=== PATIENT | female | born 2000 | race African-American/Black ===

== ENCOUNTER 2022-07-28 14:32 | Inpatient (IN) | payer MEDICAID, SELFPAY ==
[2022-07-28 14:33] VITALS: BP 129/75; PULSE 120; RESP 16; TEMP 36.4; O2SAT 98; BMI 38.5
[2022-07-28 15:26] LABS: Basophil# 0.02 X10^3/uL; Basophil% 0.2 % (0-1); Eosinophil# 0.22 X10^3/uL; Eosinophils% 1.8 % (0-5); Hematocrit 40.9 % (37-47); Hemoglobin 12.6 g/dL (12.0-15.0); Lymphocyte % 25.1 % (19-41); Mean Corp Hgb Conc 30.8 g/dL (32-36); Mean Corpuscular Hgb 27.8 pg (27.0-32.0); Mean Corpuscular Volume 90.3 fL (81-99); Mean Platelet Vol. 9.8 fl (6.2-12.0); Monocyte# 0.93 X10^3/uL; Monocyte% 7.5 % (0-10); NRBC Flagged by Analyzer 0 % (0-5); Neutrophil # 8.01 X10^3/uL (2.7-7.7); Platelet Count 258 K/mm3 (150-450); RBC Distribution Width CV 14.3 % (11.6-14.6); RBC Distribution Width SD 47.4 fl (35.1-43.9); Red Blood Count 4.53 M/mm3 (4.2-5.4); White Blood Count 12.3 K/mm3 (4.4-11.0)
--- NOTE | 2022-07-28 15:39 | CM.ED ---
Addendum entered by Karo Samuels 07/28/22 16:14: ANA informed treatment navigator the patient is being admitted for detox and going to [facility]. 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 Patient was laying in the hospital bed in hospital gown and agreeable to speak to social sciences chair. SW inquired about patient's use and interest in detox. Patient reports she has been using heroin daily for 6 1/2 months, but wants to detox. SW reviewed RAMP rules including patient's personal items being locked up and meeting with addictions counselor Enio for after care/ discharge planning. Patient inquired about the room setup and if the patient would have a roommate like rehab. SW explained it is a hospital room set up with a single bed. Patient reports no other questions or needs. SW remains available if needs arise. FRAN Miller
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
[2022-07-28 15:42] LABS: Internal QC Validated? YES +Cl - CLEAR BKGD; Pregnancy, Serum, hCG Quali. NEGATIVE Negative
[2022-07-28 15:44] LABS: Anion Gap 5 (5-15); BUN 11 mg/dL (7-18); BUN/Creat Ratio 14.2 RATIO (10-20); Calcium,Total 9.1 mg/dL (8.5-10.1); Chloride 107 mmol/L (98-107); Creatinine, Serum 0.77 mg/dL (0.55-1.02); EST Glomerular Filtration Rate 100 mL/min (>60); Est Glom Filt Rate - Afr Amer 121 mL/min (>60); Estimated Creatinine Clearance 83.01 ml/min; Glucose 91 mg/dL (74-106); Potassium 4.3 mmol/L (3.5-5.1); Sodium Level 139 mmol/L (136-145)
--- NOTE | 2022-07-28 15:57 | HP.PCM.HOS_ITS ---
HPI - General General Date of Admission: 07/28/22 Date of Service: 07/28/22 Chief Complaint: Desire for detoxification HPI Narrative GARETT CALDERON, is a 22 F with history of opioid dependence who was court mandated to undergo medical stabilization. Patient admitted to use of heroin she apparently smokes daily. She has apparently been using heroin for the past 3 years. [facility] Medical History no medical history Home Medications NK 07/28/22 [History Last Taken Unknown] Allergy/AdvReac Type Severity Reaction Status Date / Time No Known Allergies Allergy Verified 07/28/22 14:35 Family History (Updated 07/28/22 @ 16:[address] Abiel Ramos MD) Mother Schizophrenia Surgical History Hx of tonsillectomy Surgical History no surgical history Social History Smoking Status: Current every day smoker tobacco type: cigarettes and e- cigarettes ROS ROS Narrative GENERAL: denies fever, chills, night sweats, weight loss, anorexia HEENT: denies headache, sinus congestion, or drainage, dysphagia RESPIRATORY: denies cough, sputum production, shortness of breath, dyspnea on exertion CARDIAC: denies chest pain, palpitations, orthopnea, PND GASTROINTESTINAL: denies abdominal pain, nausea, vomiting, melena, GENITOURINARY: denies dysuria, urgency, frequency, heamaturia EXTREMITY: denies swelling MUSCULOSKELETAL: denies current joint pain or tenderness NEUROLOGIC: denies focal numbness, weakness, tingling HEMATOLOGIC: denies easy bruising and/or hemorrhage INTEGUMENT: denies rashes PSYCHIATRIC: denies suicidal or homicidal ideation Vital Signs Vital Signs Vital Signs: 07/28/22 14:33 Temperature 97.6 F L Temperature Source Temporal Pulse Rate 120 H Respiratory Rate 16 Blood Pressure 129/75 H Blood Pressure Mean 93 Pulse Ox 98 Oxygen Delivery Method Room Air Weight Weight: 89.499 kg Body Mass Index (BMI) 38.5 Physical Exam Narrative GENERAL: cooperative HEENT: Atraumatic; normocephalic EYES; Anicteric, Normal Conjunctiva NECK; supple, normal thyroid, RESPIRATORY: Diminished to auscultation CARDIOVASCULAR: Regular S1 S2, GI: soft, normoactive bowel sounds, : No Renal angle tenderness; EXTREMITIES: No edema, no clubbing, MUSCULOSKELETAL: no muscle wasting NEURO: Awake; no lateralizing signs. SKIN: No Rash PSYCH; Flat affect Results Lab / Micro Data Result Diagrams: 07/28/22 15:15 07/28/22 15:15 Labs: Laboratory Results - last 24 hr 07/28/22 15:15: WBC 12.3 H, RBC 4.53, Hgb 12.6, Hct 40.9, MCV 90.3, MCH 27.8, M CHC 30.8 L, RDW Std Deviation 47.4 H, RDW Coeff of Efrain 14.3, Plt Count 258, MPV 9.8, Immature Gran % (Auto) 0.400, Neut % (Auto) 65.0, Lymph % (Auto) 25.1, [place] % (Auto) 7.5, Eos % (Auto) 1.8, Baso % (Auto) 0.2, Absolute Neuts (auto) 8.0 H, Absolute Lymphs (auto) 3.10, Nucleated RBC % 0 07/28/22 15:15: Sodium 139, Potassium 4.3, Chloride 107, Carbon Dioxide 27.0, Anion Gap 5, BUN 11, Creatinine 0.77, Estim Creat Clear Calc 83.01, Est GFR (MDRD) Af Amer 121, Est GFR (MDRD) Non-Af 100, BUN/Creatinine Ratio 14.2, Gluc ose 91, Calcium 9.1 07/28/22 15:15: Serum , Qual NEGATIVE Assessment & Plan Assessment/Plan (1) Heroin abuse: (2) Cocaine abuse: PLAN: Plan Patient is a 22-year-old admitted for medical stabilization from opioid dependence 1. Opioid dependence with desire for detoxification ? Admitted to regular nursing floor currently being managed with Subutex taper in addition to symptomatic treatment 2. Depression with anxiety ? Currently not on any medication 3. Tobacco dependence - Counseled on cessation, offered nicotine patch for tobacco cravings 4. Polysubstance abuse including heroin and cocaine ? Counseled on cessation 5. DVT prophylaxis low risk Time spent in the patient's overall evaluation,decision-making process, review of diagnostic data, adjustment of management, discussion with other providers, nursing nursing and ancillary staff involved in patient's care documentation, 55 Minutes Charges/Coding Visit Charges Inpatient E&M: 44099 Init Hosp L2
[2022-07-28 16:37] VITALS: BMI 27.3
[2022-07-28 16:40] VITALS: BP 115/71; PULSE 93; RESP 16; TEMP 36.8; O2SAT 96
[2022-07-28 16:46] VITALS: BP 160/141; PULSE 96; RESP 18; TEMP 36.7; O2SAT 100
[2022-07-28 17:11] VITALS: BP 138/80; PULSE 96; RESP 16; TEMP 36.8; O2SAT 100
[2022-07-28 17:28] LABS: Amphetamine Urine VISTA NEGATIVE (<1000 ng/mL); Barbiturate Urine VISTA NEGATIVE (< 200 ng/mL); Benzodiazepine Urine VISTA NEGATIVE (< 200 ng/mL); Cocaine Urine VISTA POSITIVE (< 300 ng/mL); Ecstacy Urine VISTA NEGATIVE (< 500 ng/mL); Methadone Urine VISTA NEGATIVE (< 300 ng/mL); PCP Urine VISTA NEGATIVE (< 25 ng/mL); THC Urine VISTA NEGATIVE (< 50 ng/mL); Vista UDS pH Range 7
[2022-07-28 23:35] VITALS: BP 93/51; PULSE 75; RESP 16; TEMP 36.4; O2SAT 100
--- NOTE | 2022-07-29 07:39 | PCM.PN.HOSP ---
Reason for Visit Reason for Visit: Diagnoses Opioid abuse, uncomplicated (07/28/22) Cocaine abuse, uncomplicated (07/28/22) Subjective Subjective Patient is a 22-year-old lady admitted with opioid dependence. Admitted to regular nursing floor started on Subutex taper to assist with her withdrawal Objective Data Objective Data Vital Signs: Vital Signs Temp Pulse Resp BP Pulse Ox O2 Del Method 97.6 F L 75 16 93/51 L 100 Room Air 07/28/22 23:35 07/28/22 23:35 07/28/22 23:35 07/28/22 23:35 07/28/22 23:35 07/28/22 23:40 Oxygen Delivery Method Room Air Weight: 63.503 kg Body Mass Index (BMI) 27.3 Intake & Output: Intake and Output for Last 24 Hours 07/27/22 07/28/22 07/29/22 23:59 23:59 23:59 Intake Total 300 / 300 Balance 300 / 300 Lab / Micro Data Result Diagrams: 07/28/22 15:15 07/28/22 15:15 Labs: Laboratory Results - last 24 hr 07/28/22 15:15: WBC 12.3 H, RBC 4.53, Hgb 12.6, Hct 40.9, MCV 90.3, MCH 27.8, MCHC 30.8 L, RDW Std Deviation 47.4 H, RDW Coeff of Efrain 14.3, Plt Count 258, MPV 9.8, Immature Gran % (Auto) 0.400, Neut % (Auto) 65.0, Lymph % (Auto) 25.1, [place] % (Auto) 7.5, Eos % (Auto) 1.8, Baso % (Auto) 0.2, Absolute Neuts (auto) 8.0 H, Absolute Lymphs (auto) 3.10, Nucleated RBC % 0 07/28/22 15:15: Sodium 139, Potassium 4.3, Chloride 107, Carbon Dioxide 27.0, Anion Gap 5, BUN 11, Creatinine 0.77, Estim Creat Clear Calc 83.01, Est GFR (MDRD) Af Amer 121, Est GFR (MDRD) Non-Af 100, BUN/Creatinine Ratio 14.2, Glucose 91, Calcium 9.1 07/28/22 15:15: Ethyl Alcohol 14.0 07/28/22 15:15: Serum , Qual NEGATIVE 07/28/22 16:30: Urine Opiates Screen NEGATIVE, Urine Methadone Screen NEGATIVE, Ur Barbiturates Screen NEGATIVE, Ur Phencyclidine Scrn NEGATIVE, Ur Amphetamines Screen NEGATIVE, MDMA (Ecstasy) Screen NEGATIVE, U Benzodiazepines Scrn NEGATIVE, Urine Cocaine Screen POSITIVE H, U Cannabinoids Screen NEGATIVE, Ur Drug Screen Comment Physical Exam Narrative GENERAL: cooperative HEENT: Atraumatic; normocephalic EYES; Anicteric, Normal Conjunctiva NECK; supple, normal thyroid, RESPIRATORY: Diminished to auscultation CARDIOVASCULAR: Regular S1 S2, GI: soft, normoactive bowel sounds, : No Renal angle tenderness; EXTREMITIES: No edema, no clubbing, MUSCULOSKELETAL: no muscle wasting NEURO: Awake; no lateralizing signs. SKIN: No Rash PSYCH; Flat affect Assessment & Plan Assessment/Plan (1) Heroin abuse: (2) Cocaine abuse: PLAN: Plan Patient is a 22-year-old admitted for medical stabilization from opioid dependence 1. Opioid dependence with desire for detoxification ? Admitted to regular nursing floor currently being managed with Subutex taper in addition to symptomatic treatment ? 07/29/2022. Patient has tolerated the Subutex taper well so far 2. Depression with anxiety ? Currently not on any medication 3. Tobacco dependence - Counseled on cessation, offered nicotine patch for tobacco cravings 4. Polysubstance abuse including heroin and cocaine ? Counseled on cessation 5. DVT prophylaxis low risk Time spent in the patient's overall evaluation,decision-making process, review of diagnostic data, adjustment of management, discussion with other providers, nursing nursing and ancillary staff involved in patient's care documentation, 35 Minutes Charges/Coding Visit Charges Inpatient E&M: 59524 Subs Hosp L2
[2022-07-29 09:21] VITALS: BP 90/51; PULSE 73; RESP 16; TEMP 37; O2SAT 99
[2022-07-29] MEDS: Methocarbamol 750 MG Tablet 1500 MG PO (09:25)
[2022-07-29] MEDS: Dicyclomine 10 MG Capsule 20 MG PO (09:25)
[2022-07-29 13:49] VITALS: BP 114/70; PULSE 85; RESP 16; TEMP 37.3; O2SAT 99
[2022-07-29] MEDS: Ensure Plus High Protein 120 ML LIQUID PO (13:52)
[2022-07-29] MEDS: Senna Tablet 2 TABLET PO (13:53)
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
[2022-07-29 19:38] VITALS: BP 102/64; PULSE 92; RESP 16; TEMP 37; O2SAT 99
[2022-07-29] MEDS: hydrOXYzine PAM 25 MG Capsule 50 MG PO (19:46)
[2022-07-30 02:31] VITALS: BP 101/55; PULSE 64; RESP 14; TEMP 36.8; O2SAT 99
--- NOTE | 2022-07-30 07:29 | PCM.PN.HOSP ---
Reason for Visit Reason for Visit: Diagnoses Opioid abuse, uncomplicated (07/28/22) Cocaine abuse, uncomplicated (07/28/22) Subjective Subjective Seen apparently had to receive any Buprenorphine on due to low CINA score Objective Data Objective Data Vital Signs: Vital Signs Temp Pulse Resp BP Pulse Ox O2 Del Method 98.3 F 64 14 101/55 L 99 Room Air 07/30/22 02:31 07/30/22 02:31 07/30/22 02:31 07/30/22 02:31 07/30/22 02:31 07/30/22 02:31 Oxygen Delivery Method Room Air Weight: 63.503 kg Body Mass Index (BMI) 27.3 Intake & Output: Intake and Output for Last 24 Hours 07/28/22 07/29/22 07/30/22 23:59 23:59 23:59 Intake Total 300 / 300 Balance 300 / 300 Medical Nutrition Assessment Dietitian: Malnutrition Criteria Met Start: 07/29/22 10:27 Freq: Status: Active Protocol: Document 07/29/22 10:27 ELIZ (Rec: 07/29/22 10:27 ELIZ [id number]) Nutrition Malnutrition Evidence of Malnutrition Exists Yes Malnutrition (severe): Social/Behavioral/ Environmental Evidenced By Suboptimal Energy Intake ( Severe),Weight Loss (Severe) Clinical Problem Acute Disease or Injury Related Malnutrition Etiology related to drug abuse and inadequate energy intake Signs/Symptoms as evidenced by 16.9% unintentional wt loss and po intake meeting <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 Lab / Micro Data Result Diagrams: 07/28/22 15:15 07/28/22 15:15 Physical Exam Narrative GENERAL: cooperative HEENT: Atraumatic; normocephalic EYES; Anicteric, Normal Conjunctiva NECK; supple, normal thyroid, RESPIRATORY: Diminished to auscultation CARDIOVASCULAR: Regular S1 S2, GI: soft, normoactive bowel sounds, : No Renal angle tenderness; EXTREMITIES: No edema, no clubbing, MUSCULOSKELETAL: no muscle wasting NEURO: Awake; no lateralizing signs. SKIN: No Rash PSYCH; Flat affect Assessment & Plan Assessment/Plan (1) Heroin abuse: (2) Cocaine abuse: PLAN: Plan Patient is a 22-year-old admitted for medical stabilization from opioid dependence 1. Opioid dependence with desire for detoxification ? Admitted to regular nursing floor; placed on Subutex taper in addition to symptomatic treatment ? 07/30/2022 Seen apparently had to receive any Buprenorphine on due to low CINA score 2. Depression with anxiety ? Currently not on any medication 3. Tobacco dependence - Counseled on cessation, offered nicotine patch for tobacco cravings 4. Polysubstance abuse including heroin and cocaine ? Counseled on cessation 5. DVT prophylaxis low risk Time spent in the patient's overall evaluation,decision-making process, review of diagnostic data, adjustment of management, discussion with other providers, nursing nursing and ancillary staff involved in patient's care documentation, 25 Minutes Charges/Coding Visit Charges Inpatient E&M: 69397 Subs Hosp L1
[2022-07-30] MEDS: Ensure Plus High Protein 120 ML LIQUID PO (07:51)
[2022-07-30 08:19] VITALS: BP 104/72; PULSE 78; RESP 16; TEMP 37.3; O2SAT 99
--- NOTE | 2022-07-30 08:55 | PCM.DC.SUM ---
Providers Date of Admission: 07/28/22 Date of Discharge: 07/30/22 Primary Care Physician: No Primary Care Phys Reason For Visit: ACUTE OPIOID WITHDRAWAL Diagnosis Discharge Diagnosis (1) Heroin abuse: Status: Acute Code(s): F11.10 - Opioid abuse, uncomplicated (2) Cocaine abuse: Status: Acute Code(s): F14.10 - Cocaine abuse, uncomplicated Plan Patient is a 22-year-old admitted for medical stabilization from opioid dependence 1. Opioid dependence with desire for detoxification ? Admitted to regular nursing floor; placed on Subutex taper in addition to symptomatic treatment ? 07/30/2022 Seen apparently had to receive any Buprenorphine on due to low CINA score. Patient was therefore discharged after 2 days of hospital stay 2. Depression with anxiety ? Currently not on any medication 3. Tobacco dependence - Counseled on cessation, offered nicotine patch for tobacco cravings 4. Polysubstance abuse including heroin and cocaine ? Counseled on cessation 5. DVT prophylaxis low risk Time spent in the patient's overall evaluation,decision-making process, review of diagnostic data, adjustment of management, discussion with other providers, nursing nursing and ancillary staff involved in patient's care documentation, 35 Minutes Medications at Discharge Home Medications NK 07/28/22 Hospital Course Summary of Care Provided Minutes Spent on Discharge: 35 Physical Exam Narrative GENERAL: cooperative HEENT: Atraumatic; normocephalic EYES; Anicteric, Normal Conjunctiva NECK; supple, normal thyroid, RESPIRATORY: Diminished to auscultation CARDIOVASCULAR: Regular S1 S2, GI: soft, normoactive bowel sounds, : No Renal angle tenderness; EXTREMITIES: No edema, no clubbing, MUSCULOSKELETAL: no muscle wasting NEURO: Awake; no lateralizing signs. SKIN: No Rash PSYCH; Flat affect Medical Records Data Medical Nutrition Assessment Dietitian: Malnutrition Criteria Met Start: 07/29/22 10:27 Freq: Status: Active Protocol: Document 07/29/22 10:27 ELIZ (Rec: 07/29/22 10:27 ELIZ [id number]) Nutrition Malnutrition Evidence of Malnutrition Exists Yes Malnutrition (severe): Social/Behavioral/ Environmental Evidenced By Suboptimal Energy Intake ( Severe),Weight Loss (Severe) Clinical Problem Acute Disease or Injury Related Malnutrition Etiology related to drug abuse and inadequate energy intake Signs/Symptoms as evidenced by 16.9% unintentional wt loss and po intake meeting <75% 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 Weight / BMI Weight Weight: 63.503 kg Body Mass Index (BMI) 27.3 ABG / Lab / Microbiology Data Result Diagrams: 07/28/22 15:15 07/28/22 15:15 D/C Instructions Discharge Diet: No restrictions Discharge Activity: Return to Normal Activity Call your doctor if you observe: Fever of 101 or Higher, Shortness of breath, Fainting spells and Chest pain Meaningful Use Info Meaningful Use Diagnoses (Choose all that apply): None applicable Discharge Plan Admission Admit Date/Time: 07/28/22 15:48 Attending Provider: Abiel Ramos Primary Care Provider: Care Physician,No Primary Discharge Orders/Prescriptions Prescriptions: No Action NK Referrals / Follow Up: Care Physician,No Primary [Primary Care Provider] - Disposition Disposition (needs filled in before D/C Order can be placed): Home, Self Care Charges/Coding Visit Charges Inpatient E&M: 17022 Disch Hosp >30min
== END 2022-07-30 09:38 | disposition home or self-care (01) | DRG 773 ==
LOC: ED 16:09 → MS3 16:17
PROVIDERS: Nurse Practitioner; Admitting Provider Internal Medicine; Emergency Provider Emergency Medicine; Visit Provider Internal Medicine
DX: F11.20 Opioid dependence, uncomplicated (principal); F14.10 Cocaine abuse, uncomplicated; S01.81XA Laceration without foreign body of other part of head, initial encounter; F41.8 Other specified anxiety disorders; F17.210 Nicotine dependence, cigarettes, uncomplicated; Y04.0XXA Assault by unarmed brawl or fight, initial encounter
CPT/HCPCS: 36415; 80048; 80307; 82077; 84703; 85025; 97802; 99283; 99406